=== PATIENT | female | born 1965 | race Two or more races ===

== ENCOUNTER → 2024-09-27 | Outpatient (CLI) | payer MEDICARE, MEDICAID, SELFPAY ==
--- NOTE | 2024-09-27 11:48 | XR_ITS ---
Examination: Abdomen AP single view Technique: AP portable supine abdomen, single view Exam date and time: September 23, 2024 1253 hours INDICATIONS: Constipation 6 months ago FINDINGS: Large amounts of stool throughout the colon No obstruction No free air IMPRESSION: Large amounts of stool throughout the colon
== END | disposition home or self-care (01) ==
PROVIDERS: PCP Physician Assistant; Referring Provider Physician Assistant; Visit Provider Physician Assistant
DX: K59.00 Constipation, unspecified (principal)
CPT/HCPCS: 74018

== ENCOUNTER 2025-02-06 07:52 | Emergency (ER) | payer MEDICARE, MEDICAID, SELFPAY ==
[2025-02-06 07:58] VITALS: BP 107/70; PULSE 82; RESP 19; TEMP 37.1; O2SAT 96
--- NOTE | 2025-02-06 08:16 | XR_ITS ---
Examination: PA lateral chest 2 views TECHNIQUE: Upright PA lateral chest 2 views Exam date and time: February 06, 2025 0829 hours INDICATIONS: Coughing fever 5 days FINDINGS: Atelectasis and/or early pneumonia right lower lobe right middle lobe Normal heart size IMPRESSION: Atelectasis and/or early pneumonia right lower lobe right middle lobe, clinical correlation advised
--- NOTE | 2025-02-06 08:39 | PD.EDURI ---
Upper Respiratory Inf. RME/HPI General Chief Complaint: Flu Like Symptoms Stated Complaint: BAD COUGH X 4-5 DAYS, ASTHMA ATTACK Time Seen by Provider: 02/06/25 07:57 Source: patient Arrival date/time: 02/06/25 07:52 59-year-old female with a history of asthma presents to the emergency room with a chief complaint of cough x 5 days Mode of arrival: ambulatory Limitations: no limitations Related Data Home Medications ?Medication ?Instructions ?Recorded ?Confirmed amlodipine 10 mg tablet 10 mg PO DAILY 02/26/19 04/16/22 cetirizine 10 mg tablet 10 mg PO DAILY 02/26/19 04/16/22 omeprazole 20 mg capsule,delayed 20 mg PO QDAY 02/26/19 04/16/22 release amitriptyline 25 mg tablet 25 mg PO QDAY 11/26/19 04/16/22 aspirin 81 mg tablet,delayed 81 mg PO QDAY 11/26/19 04/16/22 release (Aspir-) atorvastatin 40 mg tablet 1 tab PO QDAY 04/16/22 04/16/22 citalopram 20 mg tablet 1 tab PO QDAY 04/16/22 04/16/22 fenofibrate nanocrystallized 48 mg 1 tab PO QDAY 04/16/22 04/16/22 tablet gabapentin 300 mg capsule 1 cap PO HS 04/16/22 04/16/22 insulin glargine 100 unit/mL (3 55 unit subcut QDAY 04/16/22 04/16/22 mL) subcutaneous pen (Basaglar KwikPen U-100 Insulin) linagliptin 5 mg tablet (Tradjenta) 1 tab PO QDAY 04/16/22 04/16/22 Previous Rx's ?Medication ?Instructions ?Recorded metformin 500 mg tablet 500 mg PO BID #14 tabs 11/26/19 prednisone 50 mg tablet 50 mg PO QDAY #7 tabs 10/04/23 amoxicillin 875 mg-potassium 1 tab PO BID 7 days #14 tabs 02/06/25 clavulanate 125 mg tablet Allergies Allergy/AdvReac Type Severity Reaction Status Date / Time No Known Allergies Allergy Verified 02/06/25 07:57 Review of Systems Review of Systems Systems Reviewed: All systems reviewed, normal except as documented Constitutional Constitutional: Reports system reviewed and no additional complaints, except as documented, Denies fatigue, Denies fever(s), Denies headache(s) and Denies weakness Eyes Eyes: Reports system reviewed and no additional complaints, except as documented, Denies blurry vision and Denies change in vision ENT Ears, Nose, Mouth, and Throat: Reports system reviewed and no additional complaints, except as documented, Denies otalgia, Denies headache(s), Denies nasal congestion, Denies throat swelling and Denies vertigo Cardiovascular Cardiovascular: Reports system reviewed and no additional complaints, except as documented, Denies chest pain, Denies dyspnea and Denies dyspnea on exertion Respiratory Respiratory: Reports system reviewed and no additional complaints, except as documented, Denies chest congestion, Reports cough, Denies dyspnea, Denies dyspnea on exertion and Denies wheezing Gastrointestinal Gastrointestinal: Reports system reviewed and no additional complaints, except as documented, Denies abdominal pain, Denies cramping, Denies nausea and Denies vomiting Genitourinary Genitourinary: Reports system reviewed and no additional complaints, except as documented Musculoskeletal Musculoskeletal: Reports system reviewed and no additional complaints, except as documented and Denies back pain Integumentary/Breasts Skin/Breast: Reports system reviewed and no additional complaints, except as documented and Denies wounds Neurologic Neurologic: Reports system reviewed and no additional complaints, except as documented, Denies confusion, Denies headache(s), Denies lack of coordination, Denies vertigo and Denies weakness Psychiatric Psychiatric: Reports system reviewed and no additional complaints, except as documented, Denies anxiety, Denies confusion, Denies depression, Denies paranoia, Denies suicidal ideation and Denies tactile hallucinations Endocrine Endocrine: Reports system reviewed and no additional complaints, except as documented and Denies fatigue Hematologic/Lymphatic Hematologic/Lymphatic: Reports system reviewed and no additional complaints, except as documented and Denies lymphadenopathy Allergic/Immunologic Allergic/Immunologic: Reports system reviewed and no additional complaints, except as documented, Denies throat swelling, Denies urticaria and Denies wheezing Past Medical History Past Medical History NEUROLOGIC: Positive Neurological Disorders, Brain Tumor (TUMOR REMOVED) and Seizures CARDIAC: Positive Cardiac Disorders, Hypercholesterolemia and Hypertension; Negative Congestive Heart Failure RESPIRATORY: Positive Asthma; Negative Chronic Obstructive Pulmonary Disease (COPD) GASTROINTESTINAL: Negative Gastrointestinal Disorders GENITOURINARY: Negative Genitourinary Disorders or Renal Disease REPRODUCTIVE: Negative Endometriosis, Pelvic Inflammatory Disease or Uterine Prolapse MUSCULOSKELETAL: Negative Musculoskeletal Disorders ENDOCRINE: Positive Endocrine Disorders (prediabetic); Negative Diabetes Mellitus Type 1 or Diabetes Mellitus Type 2 HEMATOLOGIC: Negative Blood Disorders OTHER HISTORY: Negative Blood Transfusions, Blood Transfusion Reaction, Anesthesia Reactions or Organ Transplant Family History FAMILY HISTORY: Negative Family Cardiac Disorders Surgical History SURGICAL: Positive Neurologic Surgery (brain tumor removed) and Hysterectomy; Negative Abdominal Surgery, Nephrectomy, Joint Replacement or Organ Transplant Social History SMOKING STATUS: Never smoker SUBSTANCE USE: does not use ED Exam General Limitations: Present no limitations General appearance: Present alert and in no apparent distress Head Head exam: Present atraumatic Eye Eye exam: Present normal appearance, PERRL and EOMI ENT ENT exam: Present normal exam, normal oropharynx and mucous membranes moist Neck Neck exam: Present normal inspection, full ROM and trachea midline Chest Chest inspection: Present normal inspection and symmetric chest wall rise Respiratory Respiratory exam: Present normal lung sounds bilaterally; Absent respiratory distress, wheezes, stridor, accessory muscle use or prolonged expiratory phase Cardiovascular Cardiovascular exam: Present regular rate, normal rhythm and normal heart sounds Abdominal Exam Abdominal exam: Present soft and normal bowel sounds Extremities Exam Extremities exam: Present normal inspection and full ROM Back Exam Back exam: Present normal inspection and full ROM Neurological Exam Neurological exam: Present alert, oriented X3 and CN II-XII intact Psychiatric Psychiatric exam: Present normal affect and normal mood Skin Skin exam: Present warm, dry, intact and normal color Course Quality Measures none Orders Category Date Time Status Bedside COVID-19 Antigen Test NOW Care 02/06/25 08:16 Completed Bedside Influenza A&B Antigen Test NOW Care 02/06/25 08:16 Completed XR chest 2V Stat Exams 02/06/25 08:16 Completed Vital Signs Vital signs: Vital Signs Temperature 98.7 F 02/06/25 07:58 Pulse Rate 82 02/06/25 07:58 Respiratory Rate 19 02/06/25 07:58 Blood Pressure 107/70 02/06/25 07:58 Pulse Oximetry (%) 96 02/06/25 07:58 Oxygen Delivery Method Room Air 02/06/25 07:58 O2 saturation 96% within normal limits Upper Respiratory Infection MDM Narrative MDM Narrative:: 59-year-old female with a history of asthma presents to the emergency room with a chief complaint of cough x 5 days Patient is hemodynamically stable. She does not have a fever she is not tachycardic not tachypneic and her O2 saturation is 96% on room air Physical examination shows clear bilateral lung sounds. There is no wheezing or any abnormal breath sounds Chest x-ray was completed and shows some early pneumonia to the middle and lower right lobes. Antibiotics are sent to her pharmacy Patient was discharged and educated to follow-up with primary care provider in the next 24 to 48 hours and return to the emergency room for any evidence of worsening signs or symptoms Patient data External records reviewed:: [facility] previous records Clinical information provided by:: patient Social determinants that could affect healthcare access:: none Patient has the following chronic illnesses:: Asthma How is presenting disease/condition affected by chronic disease/condition?: exacerbated by Evaluation data The following diagnostics were reviewed and interpreted by me:: lab results and radiology exam(s) Lab and/or radiology exams considered but not ordered:: Labs and radiology exams considered and ordered Interpretation Summary: Chest [id number]: Atelectasis and/or early pneumonia right lower lobe right middle lobe Normal heart size IMPRESSION: Atelectasis and/or early pneumonia right lower lobe right middle lobe, clinical correlation advised Medications / Prescriptions Medications or Prescriptions considered but not ordered:: Medication given Medication administrations:: Rx given Consultations Consultation(s) initiated? (list below): No Diagnosis Upper Respiratory Differential Diagnosis: upper respiratory infection, viral infection, influenza and other (Community-acquired pneumonia) Most likely diagnosis given after review of the tests above:: Community-acquired pneumonia Admission Indicated Admission indicated?: not indicated Admission Request Was there a request for admission?: No Disposition Plan Disposition Plan: Discharge Discharge Attestation Discharge Attestation: The patient and all family members were given an opportunity to ask questions and understood the discharge instructions. Discharge instructions specifically effects, indications for sooner follow up or return to the emergency department, and the expected course of current diagnosis. Patient condition: Stable Discharge Plan Plan Patient Disposition: HOME (Self Care) Disposition Comment: Stable Prescriptions/Referrals Prescriptions/Med Rec: New amoxicillin-pot clavulanate 875-125 mg tablet 1 tab PO BID 7 Days Qty: 14 0RF No Action amlodipine 10 mg Tablet 10 mg PO DAILY cetirizine 10 mg Tablet 10 mg PO DAILY omeprazole 20 mg Capsule,Delayed Release(Dr/Ec) 20 mg PO QDAY aspirin [Aspir-81] 81 mg Tablet,Delayed Release (Dr/Ec) 81 mg PO QDAY amitriptyline 25 mg Tablet 25 mg PO QDAY metformin 500 mg tablet 500 mg PO BID Qty: 14 0RF atorvastatin 40 mg tablet 1 tab PO QDAY Patient Comments: TAKE ONE TABLET BY MOUTH EVERY DAY FOR CHOLESTEROL citalopram 20 mg tablet 1 tab PO QDAY Patient Comments: TAKE ONE TABLET BY MOUTH EVERY DAY gabapentin 300 mg capsule 1 cap PO HS Patient Comments: TAKE ONE CAPSULE BY MOUTH AT BEDTIME fenofibrate nanocrystallized 48 mg tablet 1 tab PO QDAY Patient Comments: TAKE ONE TABLET BY MOUTH EVERY DAY insulin glargine [Basaglar KwikPen U-100 Insulin] 100 unit/mL (3 mL) insulin pen 55 unit SUBCUT QDAY Patient Comments: INJECT 55 UNITS SUBCUTANEOUSLY EVERY DAY FOR DIABETES Tradjenta 5 mg tablet 1 tab PO QDAY Patient Comments: TAKE ONE TABLET BY MOUTH EVERY DAY FOR DIABETES prednisone 50 mg tablet 50 mg PO QDAY Qty: 7 0RF Referrals: Jocelyn Sow [Primary Care Provider] - In 1 week Problem List Clinical Impression: Community acquired pneumonia Patient/Caregiver Discharge Instructions Education Materials: ED Pneumonia (Adult) Additional Instructions: Por favor, consulte con denny m?dico de cabecera en las pr?ximas 24 a 48 horas. Denny radiograf?a de t?rax muestra montse neumon?a temprana en el lado derecho de los pulmones. Se le enviar?n antibi?ticos a denny farmacia; rec?jalos y t?melos seg?n lo indicado. Si observa cualquier signo de empeoramiento de los signos o s?ntomas, acuda a urgencias de inmediato. Print Language: [place]i Stand Alone Forms: Melia Award Info., Work/School Release, Patient Portal Info Letter PA/[employer] Supervising Physician PA/[employer] Supervising Physician: Dr. Rios
== END 2025-02-06 10:14 | disposition home or self-care (01) ==
PROVIDERS: Emergency Provider Family Medicine; PCP Physician Assistant
DX: J18.9 Pneumonia, unspecified organism (principal)
CPT/HCPCS: 71046; 99283

== ENCOUNTER → 2025-02-21 | Outpatient (CLI) | payer MEDICARE, MEDICAID, SELFPAY ==
[2025-02-21 09:03] VITALS: PULSE 75
[2025-02-21] MEDS: ALBUTEROL RT 2.5 MG/0.5 ML NEBU INH (09:03)
[2025-02-21] MEDS: SODIUM CHLORIDE RT SOL 0.9% 3 ML NEBU INH (09:04)
[2025-02-21 09:05] VITALS: PULSE 75; RESP 18; O2SAT 98
== END | disposition home or self-care (01) ==
PROVIDERS: PCP Physician Assistant; Referring Provider Specialist; Visit Provider Specialist
DX: R06.02 Shortness of breath (principal); J45.20 Mild intermittent asthma, uncomplicated
CPT/HCPCS: 94060; 94726; 94729

== ENCOUNTER → 2025-02-22 | Outpatient (CLI) | payer MEDICARE, MEDICAID, SELFPAY ==
--- NOTE | 2025-02-22 08:30 | XR_ITS ---
Examination: Screening digital mammography, bilateral Computer aided detection 3-D breast Tomosynthesis, bilateral Date and time of exam: February 22, 2025 0851 hours Compared to mammograms dating to August 29, 2020 Indication: Screening Technique: Nonmagnified MLO, CC views of the breasts to been obtained, reconstructed from 3-D Tomosynthesis images. R2 computer aided detection program utilized for evaluation of suspicious masses and/or abnormal calcifications. 3-D Tomosynthesis images obtained. Findings: Scattered areas of fibroglandular density. Benign calcifications. No interval suspicious masses Impression: BI-RADS category II: Benign Findings. Recommend 1 year follow-up mammogram.
== END | disposition home or self-care (01) ==
PROVIDERS: PCP Physician Assistant; Referring Provider Physician Assistant; Visit Provider Physician Assistant
DX: Z12.31 Encounter for screening mammogram for malignant neoplasm of breast (principal); R92.323 Mammographic fibroglandular density, bilateral breasts; R92.1 Mammographic calcification found on diagnostic imaging of breast
CPT/HCPCS: 77063; 77067

== ENCOUNTER 2025-03-06 16:44 | Emergency (ER) | payer MEDICAID, SELFPAY ==
--- NOTE | 2025-03-06 16:49 | PC.NURSE ---
Dr. Rodriguez at ambulance bay to assess patient
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
[2025-03-06 16:54] VITALS: BP 145/89; PULSE 98; RESP 18; TEMP 37.4; O2SAT 96
--- NOTE | 2025-03-06 16:55 | XR_ITS ---
Examination: CT brain head without contrast. 2-D sagittal coronal reconstructions Date and time of exam:March 06, 2025 1736 hours, history brain tumor removed 2015 with altered mental status and seizure today CTDI: vol (mGy):46.4 DLP: (mGycm):971 Technique: Multiple CT axial sections of the brain have been obtained, 5 mm slice thickness. Contrast has not been administered. 2-D sagittal, coronal reconstructions have been obtained Low dose protocols were performed. One or more of the following dose reduction techniques were used; automated exposure control, adjustment of the mA and/or KV according to patient size, use of iterative reconstruction technique. Findings: No significant ventricular enlargement. Small cerebral calcifications Intra-axial or extra-axial hemorrhage density is not seen. No mass effect or midline shift Basal cisterns are not remarkable. Fourth ventricle is midline. Left temporal craniotomy defect with encephalomalacia left parietal lobe Impression: Negative for acute hemorrhage, mass effect or midline shift Consider elective brain MRI follow-up, seizure protocol
[2025-03-06 17:14] VITALS: PULSE 104; RESP 22; O2SAT 99
[2025-03-06 17:22] VITALS: BMI 35.6
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
[2025-03-06 17:56] LABS: Base Excess, Venous 2 (-3-3); O2 Saturation, Venous 96 % (96-97); PCO2, Venous 44 mmHg (36-56); PO2, Venous 74 mmHg (15-58); pH, Venous 7.41 (7.33-7.66)
[2025-03-06 17:57] LABS: Basophils # (Auto) 0.1 Thou/mm3 (0.0-0.2); Basophils % (Auto) 1 % (0-2.5); Eosinophils # (Auto) 0.4 Thou/mm3 (0.0-0.5); Eosinophils % (Auto) 4 % (0-10); Hematocrit 33.5 % (36.0-46.0); Hemoglobin 11.5 g/dL (12.0-16.0); Immature Granulocytes % (Auto) 0 % (0-0); Immature Granulocytes Auto 0.03 Thou/mm3 (0.00-0.00); Lymphocytes # (Auto) 2.8 Thou/mm3 (1.0-4.8); Lymphocytes % (Auto) 24 % (10-50); Mean Corpuscular HGB Conc 34.3 g/dl (31.0-37.0); Mean Corpuscular Hemoglobin 27.9 pg (25.0-35.0); Mean Corpuscular Volume 81 fL (80-100); Monocytes # (Auto) 1.1 Thou/mm3 (0.0-0.8); Monocytes % (Auto) 9 % (0-12); Neutrophils # (Auto) 7.3 Thou/mm3 (1.8-7.7); Neutrophils % (Auto) 62 % (37-80); Nucleated Red Blood Cell % 0 /100 WBC (0); Platelet Count 281 Thou/mm3 (140-440); RDW Standard Deviation 42.2 fL (36.4-46.3); Red Blood Count 4.12 Miln/mm3 (4.00-5.20); White Blood Count 11.7 Thou/mm3 (3.6-11.0)
[2025-03-06 18:07] VITALS: BP 149/107; PULSE 93; RESP 17; TEMP 36.9; O2SAT 97
[2025-03-06 18:20] LABS: Alanine Aminotransferase 61 U/L (10-49); Albumin, Serum 4.4 gm/dL (3.5-5.0); Albumin/Globulin Ratio 1.6 (1.2-2.2); Alkaline Phosphatase 75 U/L (46-116); Anion Gap 10 (7-16); Aspartate Amino Transferase 54 U/L (0-34); BUN/Creatinine Ratio 16 Ratio (12-20); Bilirubin,Total 0.2 mg/dL (0.3-1.2); Blood Urea Nitrogen 13 mg/dL (9-23); Calcium 9.8 mg/dL (8.3-10.6); Calcium (Corrected) 9.8 mg/dL (8.5-10.1); Carbon Dioxide 26.9 mMol/L (20.0-31.0); Chloride 101 mMol/L (98-107); Creatinine (Component) 0.8 mg/dL (0.6-1.3); Estimated Creatinine Clearance 84.3 mL/min (>60); Globulin 2.7 gm/dL (2.3-3.5); Glucose 148 mg/dL (74-106); Osmolality,Calculated 278 (275-295); Potassium 3.5 mMol/L (3.4-5.1); Sodium 138 mMol/L (136-145); Total Protein 7.1 gm/dL (5.7-8.2); eGFR > 60 See Note
--- NOTE | 2025-03-06 18:44 | PD.EDADDENDU ---
Emergency Room Addendum <Carolina Bell - Last Filed: 03/06/25 20:58> Addendum Narrative: 1800: Care assumed from Dr. Rodriguez (emergency physician). Past medical, surgical, social and family history reviewed. Vitals and home medications reviewed. Results and treatment plan discussed. I will assume the care of the patient at this time and will follow the patient, pending head CT and labs. Please refer to the emergency department record for history and examination. RADIOLOGY HEAD CT Findings: No significant ventricular enlargement. Small cerebral calcifications Intra-axial or extra-axial hemorrhage density is not seen. No mass effect or midline shift Basal cisterns are not remarkable. Fourth ventricle is midline. Left temporal craniotomy defect with encephalomalacia left parietal lobe Impression: Negative for acute hemorrhage, mass effect or midline shift Consider elective brain MRI follow-up, seizure protocol LABS WBC elevated at 11.7, Hgb low at 11.5, Hct low at 33.5%, Nelson # elevated at 1.1, Immaature granulocyte # elevated at 0.03. VBG pO2 elevated at 74. Glucose elevated at 148, Total bilirubin low at 0.2, AST elevated at 54, ALT elevated at 61. 1844: Patient discharged. DISCHARGE INSTRUCTIONS Even though you have been discharged from the Emergency Department, there are several things that you should do to ensure that you receive proper care: 1. DO READ your discharge instructions as these contain important information concerning your medical care. 2. If medication has been prescribed for your condition, fill the prescription as soon as possible and follow the directions on the medication. 3. RETURN AT ONCE TO THE EMERGENCY DEPARTMENT if you have any problems or concerns. These include but are not limited to fever, worsening pain(belly, chest, head, etc?), worsening shortness of breath, uncontrollable bleeding, inability to tolerate food and water, or any condition that makes you question your well-being. Also, if your symptoms do not improve in the next 12-24 hours, return to the ER or seek medical care immediately. 4. Be sure to follow up with your regular physician or specialist as instructed at discharge as this is the best way to ensure that you receive the very best of care. If you do not have a primary care physician, please contact a physician group and make an appointment. 5. Please visit [employer] for coupons regarding your prescriptions. It is a free service for you to use and can help reduce the cost of your medication. We would like to thank you for coming today and our hope is that we served you and your family well during your stay Usted low sido dado de ernesto del Departamento de Emergencias sin embargo hay algunas cosas que debe hacer para asegurarse de que usted continue recibiendo el cuidado adecuado. Por favor jenny las siguientes instrucciones con atenci?n: ? 1. Si es que le dieron alguna prescripci?n (medicamento), asegurese de ir a la farmacia de denny preferencia, llenar el medicamento y tomarlo conforme a las instrucciones. ? 2. Leas las instrucciones de ernesto con mucho cuidado dado que contienen informaci?n importante para denny mely y cuidado. 3. REGRESE AL DEPARTAMENTO DE EMERGENCIA SI tiene alg?n tipo de problema o preocupaci?n. [place] incluye edgardo no esta limitado a fiebre, mucho dolor abdominal, dolor de pecho, mucho dolor de titus, falta de aire, sangrado incontrolable, nauseas o vomitos incontrolables, inhabilidad de tolerar alimentos, o cualquier otro tipo de condici?n que le cornell cuestionar denny mely. 4. Asegurese de seguir con denny medico primario (tambien llamado medico de juliana) o con el medico especialista que le indicaron al momento del ernesto en 3 a 5 romo dado que esta es la mejor manera de asegurar que eric recibiendo el mejor cuidado medico. ? 5. Si es que tiene un telefono inteligente (smartphone) revise la pagina web o aplicaci?n GoodRx antes de pagar por reggie prescripciones (medicinas) dado que asi podr?a encontrar un cup?n para que reggie medicinas brady menos costosas. El servicio es gratuito. ? Le agradecemos denny visita el cale de darlingy y esperamos que denny mely mejore. <Jsesie Rubi MD - Last Filed: 03/06/25 21:23> Addendum Narrative: This patient was discharged by Dr. Mariangel recinos. I was not involved in the care of this patient. I did not do a reevaluation of this patient.
[2025-03-06] MEDS: levETIRAcetam INJ 100 MG/ML VIAL 5ML 1000 MG IVP (19:03)
[2025-03-06 19:13] VITALS: BP 130/80; PULSE 88; TEMP 37.1; O2SAT 92
== END 2025-03-06 19:18 | disposition home or self-care (01) ==
PROVIDERS: Emergency Provider Emergency Medicine; PCP Physician Assistant
DX: B69.0 Cysticercosis of central nervous system (principal); M54.50 Low back pain, unspecified; R56.9 Unspecified convulsions; Z91.199 Patient's noncompliance with other medical treatment and regimen due to unspecified reason
CPT/HCPCS: 36415; 70450; 80053; 80307; 81001; 82803; 83605; 85025; 96374; 99284; J1953

== ENCOUNTER 2025-07-16 11:05 | Emergency (ER) | payer MEDICARE, MEDICAID, SELFPAY ==
--- NOTE | 2025-07-16 11:34 | XR_ITS ---
Examination: CT abdomen and pelvis without contrast. Coronal 3-D reconstructions. Sagittal 2-D reconstructions. Date and time of exam:July 16, 2025, 1203 hours, comparison November 25, 2023 INDICATIONS: Sudden onset right-sided flank pain today, history kidney stones CTDI: vol (mGy): 23.6 DLP: (mGycm): 1181 Technique: Axial images of the abdomen have been obtained, 3 mm slice thickness Intravenous contrast material has not been administered. Low dose protocols were performed. One or more of the following dose reduction techniques were used; automated exposure control, adjustment of the mA and/or KV according to patient size, use of iterative reconstruction technique. Findings: Soft infiltrates in the right lower lobe Fatty infiltration throughout the liver, liver is irregular in contour and enlarged, mild to moderate No gallstones Spleen not enlarged No pancreatic or adrenal mass. No renal or ureteral calculi, no hydronephrosis Aorta normal size No bowel obstruction Significant patient motion Normal appendix No diverticulitis No bladder mass or bladder calculi IMPRESSION: Mild to moderate cardiomegaly No renal or ureteral calculi, no hydronephrosis No bladder mass or bladder calculi Normal appendix
--- NOTE | 2025-07-16 11:35 | PD.EDRME ---
Rapid Medical Screening Exam RME Arrival date/time: 07/16/25 11:05 59-year-old female with a history of hyperlipidemia, type 2 diabetes presents to the emergency room with a chief complaint of right-sided flank pain, abdominal distention and diarrhea x 1 month I have greeted and performed a focused initial assessment of this patient. A comprehensive ED assessment and evaluation of the patient, analysis of all test results, and completion of the medical decision making process will be conducted by additional ED providers. Chief Complaint: Abdominal Pain Vital signs reviewed by provider: Yes
[2025-07-16 11:38] VITALS: BP 136/80; PULSE 88; RESP 18; TEMP 36.9; O2SAT 100
[2025-07-16] MEDS: KETOROLAC INJ 60 MG/2 ML VIAL 30 MG IM (11:43)
[2025-07-16 12:47] LABS: Basophils # (Auto) 0.1 Thou/mm3 (0.0-0.2); Basophils % (Auto) 0 % (0-2.5); Eosinophils # (Auto) 0.3 Thou/mm3 (0.0-0.5); Eosinophils % (Auto) 2 % (0-10); Hematocrit 38.0 % (36.0-46.0); Hemoglobin 12.7 g/dL (12.0-16.0); Immature Granulocytes Auto 0.09 Thou/mm3 (0.00-0.00); Lymphocytes # (Auto) 3.2 Thou/mm3 (1.0-4.8); Lymphocytes % (Auto) 17 % (10-50); Mean Corpuscular HGB Conc 33.4 g/dl (31.0-37.0); Mean Corpuscular Hemoglobin 28.1 pg (25.0-35.0); Mean Corpuscular Volume 84 fL (80-100); Monocytes # (Auto) 1.4 Thou/mm3 (0.0-0.8); Monocytes % (Auto) 8 % (0-12); Neutrophils # (Auto) 14.0 Thou/mm3 (1.8-7.7); Neutrophils % (Auto) 74 % (37-80); Nucleated Red Blood Cell # 0.00 Thou/mm3 (0.00-0.00); Nucleated Red Blood Cell % 0 /100 WBC (0); Platelet Count 294 Thou/mm3 (140-440); RDW Standard Deviation 41.6 fL (36.4-46.3); Red Blood Count 4.52 Miln/mm3 (4.00-5.20); White Blood Count 19.0 Thou/mm3 (3.6-11.0)
[2025-07-16 12:49] LABS: Collection Type, Urine Clean Catch
[2025-07-16 13:03] LABS: Alanine Aminotransferase 56 U/L (10-49); Albumin, Serum 4.6 gm/dL (3.5-5.0); Albumin/Globulin Ratio 1.7 (1.2-2.2); Alkaline Phosphatase 90 U/L (46-116); Anion Gap 9 (7-16); Aspartate Amino Transferase 54 U/L (0-34); BUN/Creatinine Ratio 13 Ratio (12-20); Bilirubin,Total 0.3 mg/dL (0.3-1.2); Blood Urea Nitrogen 12 mg/dL (9-23); Calcium 10.1 mg/dL (8.3-10.6); Calcium (Corrected) 10.1 mg/dL (8.5-10.1); Carbon Dioxide 27.4 mMol/L (20.0-31.0); Chloride 104 mMol/L (98-107); Creatinine (Component) 0.9 mg/dL (0.6-1.3); Globulin 2.7 gm/dL (2.3-3.5); Glucose 99 mg/dL (74-106); Lipase 30 U/L (12-53); Osmolality,Calculated 279 (275-295); Potassium 3.7 mMol/L (3.4-5.1); Sodium 140 mMol/L (136-145); Total Protein 7.3 gm/dL (5.7-8.2); eGFR > 60 See Note
[2025-07-16 13:10] LABS: Bilirubin,Urine Negative (Negative); Blood,Urine Trace (Negative); Clarity,Urine Clear (Clear/Hazy); Color,Urine Yellow (Lt Yel-Yel); Glucose, Urine Negative (Negative); Ketones,Urine Negative (Negative); Leukocyte Esterase,Urine Positive (Negative); Nitrite,Urine Negative (Negative); PH,Urine 6.0 (5.0-7.0); Protein,Urine Trace (Neg - Trace); RBC,Urine 4 /hpf (0-3); Specific Gravity,Urine 1.024 (1.001-1.035); Squamous Epithelial Cell,Urine < 1 /hpf (0-5); Urobilinogen,Urine 2.0 mg/dL (0.0-1.0); WBC,Urine 9 /hpf (0-5)
--- NOTE | 2025-07-16 13:27 | PD.EDABDPN ---
ED Abdominal Pain RME/HPI General Chief Complaint: Abdominal Pain Stated complaint: ABD DISCOMFORT, DIARRHEA X 1 MONTH, FEVER, WEAK Time seen by provider: 07/16/25 12:11 Arrival date/time: 07/16/25 11:05 RME / HPI RME / HPI narrative: 07/16/25 11:05 59-year-old female with a history of hyperlipidemia, type 2 diabetes presents to the emergency room with a chief complaint of right-sided flank pain, abdominal distention and diarrhea x 1 month I have greeted and performed a focused initial assessment of this patient. A comprehensive ED assessment and evaluation of the patient, analysis of all test results, and completion of the medical decision making process will be conducted by additional ED providers. DR. SOARES MAIN ED EVALUATION 59 year old female with history of hypertension, diabetes, hyperlipidemia presents to the ED for evaluation of abdominal and back pain today. Reports the abdominal pain began intermittently 1 month ago and back pain began intermittently 2 weeks ago. Abdominal pain described as a fullness bloating sensation and lower back pain described as aching in sensation. Accompanied by frequent belching, intermittent diarrhea (up to 5-6 episodes of watery nonbloody diarrhea a day), nausea, one episode of vomiting this morning, and fever (tmax 100.5F). States she has consulted her PCP recently who prescribed Bentyl that she has taken without improvement. States her PCP has also ordered an ultrasound that is pending. This morning states her back pain worsened, prompting ED visit. Denies any urinary symptoms. Related Data Home Medications ?Medication ?Instructions ?Recorded ?Confirmed amlodipine 10 mg tablet 10 mg PO DAILY 02/26/19 04/16/22 cetirizine 10 mg tablet 10 mg PO DAILY 02/26/19 04/16/22 omeprazole 20 mg capsule,delayed 20 mg PO QDAY 02/26/19 04/16/22 release amitriptyline 25 mg tablet 25 mg PO QDAY 11/26/19 04/16/22 aspirin 81 mg tablet,delayed 81 mg PO QDAY 11/26/19 04/16/22 release (Aspir-) atorvastatin 40 mg tablet 1 tab PO QDAY 04/16/22 04/16/22 citalopram 20 mg tablet 1 tab PO QDAY 04/16/22 04/16/22 fenofibrate nanocrystallized 48 mg 1 tab PO QDAY 04/16/22 04/16/22 tablet gabapentin 300 mg capsule 1 cap PO HS 04/16/22 04/16/22 insulin glargine 100 unit/mL (3 55 unit subcut QDAY 04/16/22 04/16/22 mL) subcutaneous pen (Basaglar KwikPen U-100 Insulin) linagliptin 5 mg tablet (Tradjenta) 1 tab PO QDAY 04/16/22 04/16/22 Previous Rx's ?Medication ?Instructions ?Recorded metformin 500 mg tablet 500 mg PO BID #14 tabs 11/26/19 prednisone 50 mg tablet 50 mg PO QDAY #7 tabs 10/04/23 famotidine-Ca carb-mag hydrox 10 1 tab PO Q12H 5 days #10 tabs 07/16/25 mg-800 mg-165 mg chewable tablet (Pepcid Complete) ondansetron 4 mg disintegrating 4 mg PO Q8H PRN nausea and 07/16/25 tablet vomiting #10 tabs pantoprazole 40 mg granules 40 mg PO QDAY 5 days #5 ea 07/16/25 delayed-release for susp in packet (Protonix) Allergies Allergy/AdvReac Type Severity Reaction Status Date / Time No Known Allergies Allergy Verified 07/16/25 11:11 Review of Systems Review of Systems Systems Reviewed: All systems reviewed, normal except as documented Past Medical History Past Medical History NEUROLOGIC: Positive Neurological Disorders, Brain Tumor and Seizures CARDIAC: Positive Cardiac Disorders, Hypercholesterolemia and Hypertension RESPIRATORY: Positive Asthma ENDOCRINE: Positive Endocrine Disorders and Diabetes Mellitus Type 2 Surgical History SURGICAL: Positive Neurologic Surgery and Hysterectomy Social History SMOKING STATUS: Never smoker SUBSTANCE USE: does not use ED Exam Narrative Physical exam: Constitutional: Awake, alert, nontoxic, no acute distress, obese HEENT: NC, AT, EOMI Neck: Supple CV: RRR, no m/r/g Lungs: CTAB, no w/r/r, no respiratory distress. Abd: Soft, tenderness to the right lower abdomen and right CVA, no HSM noted to palpation Extremities: No deformities, no edema noted Skin: Warm, dry, intact Course Course Course Narrative: 1400h: We reviewed all of labs and imaging. CT a/p with no acute findings, WBC 19, no other concerning abnormalities. Otherwise, she has been having diarrhea that is on/off x weeks and vomiting once overnight, with reported temperature of 100.5F at home - none in ED. White count may be secondary to GI illness. However, I would hold off on abx at this point given pt overall well appearing, afebrile, no abdominal pain current, CT ok. Vital signs have remained stable, will treat symptomatically given symptoms of frequent burping and acid reflux. Advised close follow up with her PCP and reports she has an appointment on 07/20/2025. Strict return precautions discussed. Will DC home. Quality Measures none Orders Category Date Time Status CT abdomen pelvis wo con Stat Exams 07/16/25 11:34 Completed CBC Stat Lab 07/16/25 12:20 Completed CMP [Comprehensive Metabolic Panel] Stat Lab 07/16/25 12:20 Completed Lipase Stat Lab 07/16/25 12:20 Completed UA [Urinalysis] Stat Lab 07/16/25 12:30 Completed Urine Culture Stat Lab 07/16/25 12:30 Received Ketorolac Inj [Toradol Inj] Med 07/16/25 11:34 Discontinued 30 mg IM X1 ONE Vital Signs Vital signs: Vital Signs Temperature 98.5 F 07/16/25 11:38 Pulse Rate 88 07/16/25 11:38 Respiratory Rate 18 07/16/25 11:38 Blood Pressure 136/80 H 07/16/25 11:38 Pulse Oximetry (%) 100 07/16/25 11:38 Oxygen Delivery Method Room Air 07/16/25 11:38 Pulse ox is 100% on room air which is adequate. Abdominal Pain MDM MDM Narrative MDM Narrative:: IVanessa am scribing for and in the presence of Dr. Soares. Patient data External records reviewed:: [facility] previous records Clinical information provided by:: patient Social determinants that could affect healthcare access:: none Patient has the following chronic illnesses:: HTN, DM, HLD How is presenting disease/condition affected by chronic disease/condition?: exacerbated by Evaluation data The following diagnostics were reviewed and interpreted by me:: lab results and radiology exam(s) Lab and/or radiology exams considered but not ordered:: None Interpretation Summary: Ordering Physician: Rod Mcgill Date of Service: 07/16/25 Procedure(s): CT abdomen pelvis wo con Accession Number(s): [id number] cc: Rod Mcgill; Jocelyn Sow; Joon Mei MD~ Examination: CT abdomen and pelvis without contrast. Coronal 3-D reconstructions. Sagittal 2-D reconstructions. Date and time of exam:July 16, 2025, 1203 hours, comparison November 25, 2023 INDICATIONS: Sudden onset right-sided flank pain today, history kidney stones CTDI: vol (mGy): 23.6 DLP: (mGycm): 1181 Technique: Axial images of the abdomen have been obtained, 3 mm slice thickness Intravenous contrast material has not been administered. Low dose protocols were performed. One or more of the following dose reduction techniques were used; automated exposure control, adjustment of the mA and/or KV according to patient size, use of iterative reconstruction technique. Findings: Soft infiltrates in the right lower lobe Fatty infiltration throughout the liver, liver is irregular in contour and enlarged, mild to moderate No gallstones Spleen not enlarged No pancreatic or adrenal mass. No renal or ureteral calculi, no hydronephrosis Aorta normal size No bowel obstruction Significant patient motion Normal appendix No diverticulitis No bladder mass or bladder calculi IMPRESSION: Mild to moderate cardiomegaly No renal or ureteral calculi, no hydronephrosis No bladder mass or bladder calculi Normal appendix Dictated By: Joon Mei MD Signed By: <Electronically signed by Joon Mei MD in OV> 07/16/25 1232 Medications / Prescriptions Medications or Prescriptions considered but not ordered:: None Medication administrations:: Medication Administration History Discontinued Medications Ketorolac Tromethamine (Ketorolac Inj 60 Mg/2 Ml Vial) 30 mg IM X1 ONE Stop: 07/16/25 11:35 Last Admin: 07/16/25 11:43 Dose: 30 mg Documented By: See above Consultations Consultation(s) initiated? (list below): No Diagnosis Differential diagnosis abdominal pain: abdominal pain, diverticulitis and gastroenteritis Most likely diagnosis given after review of the tests above:: Diarrheal illness, leukocytosis, flank pain (resolved) Admission Indicated Admission indicated?: not indicated Admission Request Was there a request for admission?: No Disposition Plan Disposition Plan: Discharge Discharge Attestation Discharge Attestation: The patient and all family members were given an opportunity to ask questions and understood the discharge instructions. Discharge instructions specifically effects, indications for sooner follow up or return to the emergency department, and the expected course of current diagnosis. Patient condition: Stable Discharge Plan Plan Patient Disposition: HOME (Self Care) Patient condition on transfer: Stable Prescriptions/Referrals Prescriptions/Med Rec: New Pepcid Complete 10-800-165 mg tablet,chewable 1 tab PO Q12H 5 Days Qty: 10 0RF ondansetron 4 mg tablet,disintegrating 4 mg PO Q8H PRN (Reason: nausea and vomiting) Qty: 10 0RF pantoprazole [Protonix] [address] for susp in packet 40 mg PO QDAY 5 Days Qty: 5 0RF No Action amlodipine 10 mg Tablet 10 mg PO DAILY cetirizine 10 mg Tablet 10 mg PO DAILY omeprazole 20 mg Capsule,Delayed Release(Dr/Ec) 20 mg PO QDAY aspirin [Aspir-81] 81 mg Tablet,Delayed Release (Dr/Ec) 81 mg PO QDAY amitriptyline 25 mg Tablet 25 mg PO QDAY metformin 500 mg tablet 500 mg PO BID Qty: 14 0RF atorvastatin 40 mg tablet 1 tab PO QDAY Patient Comments: TAKE ONE TABLET BY MOUTH EVERY DAY FOR CHOLESTEROL citalopram 20 mg tablet 1 tab PO QDAY Patient Comments: TAKE ONE TABLET BY MOUTH EVERY DAY gabapentin 300 mg capsule 1 cap PO HS Patient Comments: TAKE ONE CAPSULE BY MOUTH AT BEDTIME fenofibrate nanocrystallized 48 mg tablet 1 tab PO QDAY Patient Comments: TAKE ONE TABLET BY MOUTH EVERY DAY insulin glargine [Basaglar KwikPen U-100 Insulin] 100 unit/mL (3 mL) insulin pen 55 unit SUBCUT QDAY Patient Comments: INJECT 55 UNITS SUBCUTANEOUSLY EVERY DAY FOR DIABETES Tradjenta 5 mg tablet 1 tab PO QDAY Patient Comments: TAKE ONE TABLET BY MOUTH EVERY DAY FOR DIABETES prednisone 50 mg tablet 50 mg PO QDAY Qty: 7 0RF Referrals: Jocelyn Sow [Primary Care Provider] - In 1 week Problem List Clinical Impression: Diarrhea, Leukocytosis, Acute flank pain Patient/Caregiver Discharge Instructions Education Materials: Abdominal Pain, Low-Fiber Diet, ED Diarrhea, Unknown Cause, ED Diet for Vomiting or ... Additional Instructions: Some general health principles that can help you: NEW START - Nutrition, Exercise, Water, Sunlight, [place], Air, Rest, and Trust in God. See [email or web address] for additional information regarding health principles. Print Language: Maltese Stand Alone Forms: Melia Award Info., Work/School Release, Patient Portal Info Letter
[2025-07-16 13:52] VITALS: BP 131/71; PULSE 73; RESP 18; TEMP 36.9; O2SAT 95
[2025-07-16 13:53] VITALS: BMI 34.4
== END 2025-07-16 14:32 | disposition home or self-care (01) ==
PROVIDERS: Nurse Practitioner Family; Emergency Provider Family Medicine; PCP Physician Assistant
DX: R10.9 Unspecified abdominal pain (principal); R19.7 Diarrhea, unspecified; D72.829 Elevated white blood cell count, unspecified; I11.9 Hypertensive heart disease without heart failure
CPT/HCPCS: 36415; 74176; 80053; 81001; 83690; 85025; 87086; 96372; 99283; J1885

== ENCOUNTER → 2025-08-22 | Outpatient (CLI) | payer MEDICARE, MEDICAID, SELFPAY ==
--- NOTE | 2025-08-22 11:00 | XR_ITS ---
Examination: Abdomen sonogram, complete Date and time of exam: August 22, 2025, 11:15 a.m INDICATIONS: CT abdomen pelvis 07/16/2025 fatty infiltration throughout the liver, irregular liver contour. Technique: Multiple real-time grayscale transabdominal sonographic images of the abdomen have been obtained. Findings: Normal gallbladder Normal common bile duct 0.2 cm Pancreatic head 2.9 cm Aorta not enlarged Liver 18.7 cm fatty infiltration Normal hepatopetal portal venous flow Patent IVC Right kidney 11.0 cm renal cortex 1.8 cm Left kidney 11.3 cm renal cortex 1.9 cm Mild renal scar formation Spleen 10.0 cm IMPRESSION: Normal gallbladder Normal common bile duct Moderate hepatomegaly fatty infiltration no focal liver lesions
== END | disposition home or self-care (01) ==
PROVIDERS: PCP Physician Assistant; Referring Provider Physician Assistant; Visit Provider Physician Assistant
DX: K76.0 Fatty (change of) liver, not elsewhere classified (principal)
CPT/HCPCS: 76700